=== PATIENT | male | born 1935 | race Caucasian/White ===

== ENCOUNTER 2016-08-20 12:46 | Inpatient (IN) | payer MEDICARE, BC ==
[~2016-08-20 12:46] MED LIST: AMICAR500 MG PO; FERROUS SU325 ( 65 ); IRON SUPPLEMEN325 MG PO; MULTIVITAMIN; MULTIVITAMIN W/1 T; MULTIVITAMINS1 EAC6 PO; SYNTHROID88 MC1 PO; TOPROL XL25 MG PO; TOPROL XL50 M1 PO; TOPROL XL50 MG PO
[2016-08-20] MEDS ORDERED: LEXAPRO10 M2 PO (13:19)
[2016-08-20 13:35] LABS: BASO % 0.4 % (0-2); EOS % 0.6 % (0-7); EOSINOPHIL ABSOLUTE COUNT 0.1 tho/cmm (0.0-0.7); HCT-HEMATOCRIT 31.1 % (36.0-53.5); HGB-HEMOGLOBIN 9.7 gm/dl (13.5-17.0); IMMATURE GRANULOCYTES ABSOLUTE 0.03 tho/cmm (0-0.03); IMMATURE GRANULOCYTES PERCENT 0.4 % (0-0.3); LYMPH % 8.7 % (20-45); LYMPH ABSOLUTE COUNT 0.7 tho/cmm (0.8-4.5); MCH (MEAN CORPUSCULAR HGB) 30.1 pg (28.0-32.0); MCHC MEAN CORPUSCULAR HGB CONC 31.2 % (32.0-36.0); MCV (MEAN CELL VOLUME) 96.6 fl (82.0-96.0); MEAN PLATELET VOLUME 10.7 cmc (9.4-12.4); MONO % 6.3 % (0-12); MONOCYTE ABSOLUTE COUNT 0.5 tho/cmm (0.0-1.2); NEUTROPHIL ABSOLUTE COUNT 6.9 tho/cmm (1.6-8.0); NEUTROPHIL-AUTOMATED 6.9 tho/cmm (1.6-8.0); NEUTROPHILS % 83.6 % (40-80); PLATELET COUNT 306 tho/cmm (150-450); RED BLOOD COUNT 3.22 mil/cmm (4.40-5.70); RED CELL DISTRIBUTION WIDTH 18.3 % (12.4-16.4); WHITE BLOOD COUNT 8.3 tho/cmm (4.0-10.0)
[2016-08-20 13:58] LABS: ALB/GLOB RATIO 1.1 (0.8-2.0); ALBUMIN 3.2 g/dl (3.5-5.0); ALKALINE PHOSPHATASE 66 U/L (33-138); ALT/SGPT 21 U/L (12-78); ANION GAP 12 mmol/L (0-20); AST/SGOT 21 U/L (10-40); BILIRUBIN,TOTAL 0.3 mg/dl (0.0-1.5); BLOOD UREA NITROGEN 36 mg/dl (6-24); CALCIUM 8.6 mg/dl (8.5-10.5); CARBON DIOXIDE-VENOUS 25 mmol/L (22-32); CHLORIDE 109 mmol/l (96-110); CREATININE 1.15 mg/dl (0.60-1.30); GLUCOSE 130 mg/dL (70-110); POTASSIUM 4.9 mmol/L (3.7-5.1); SODIUM 141 mmol/L (135-145); eGFR VALUE FOR BLACK 68 mL/Min
[2016-08-20 14:01] LABS: C-REACTIVE PROTEIN <0.3 mg/dl (0-0.9)
[2016-08-20 15:00] LABS: PROCALCITONIN <0.05 ng/ml (0.05-0.09)
[2016-08-20 16:22] LABS: URINE APPEARANCE CLEAR; URINE BILIRUBIN NEGATIVE (NEG); URINE BLOOD NEGATIVE (NEG); URINE COLOR YELLOW; URINE GLUCOSE (UA) NEGATIVE (NEG); URINE KETONE MODERATE (NEG); URINE LEUKOCYTE ESTERASE NEGATIVE (NEG); URINE NITRITE NEGATIVE (NEG); URINE PROTEIN NEGATIVE (NEG); URINE SPECIFIC GRAVITY 1.015 (1.003-1.030)
[2016-08-20 22:59] LABS: BASO % 0.5 % (0-2); EOS % 0.8 % (0-7); EOSINOPHIL ABSOLUTE COUNT 0.1 tho/cmm (0.0-0.7); IMMATURE GRANULOCYTES ABSOLUTE 0.01 tho/cmm (0-0.03); IMMATURE GRANULOCYTES PERCENT 0.2 % (0-0.3); LYMPH % 11.3 % (20-45); LYMPH ABSOLUTE COUNT 0.7 tho/cmm (0.8-4.5); MEAN PLATELET VOLUME 9.8 cmc (9.4-12.4); MONOCYTE ABSOLUTE COUNT 0.7 tho/cmm (0.0-1.2); NEUTROPHIL ABSOLUTE COUNT 4.6 tho/cmm (1.6-8.0); NEUTROPHIL-AUTOMATED 4.6 tho/cmm (1.6-8.0); NEUTROPHILS % 76.2 % (40-80); PLATELET COUNT 222 tho/cmm (150-450); RED BLOOD COUNT 2.37 mil/cmm (4.40-5.70); RED CELL DISTRIBUTION WIDTH 18.2 % (12.4-16.4); WHITE BLOOD COUNT 6.1 tho/cmm (4.0-10.0)
[2016-08-20 23:22] LABS: HGB-HEMOGLOBIN 7.2 gm/dl (13.5-17.0); MCH (MEAN CORPUSCULAR HGB) 30.3 pg (28.0-32.0); MCHC MEAN CORPUSCULAR HGB CONC 31.3 % (32.0-36.0)
[2016-08-21 05:10] LABS: BASO % 0.5 % (0-2); EOS % 1.2 % (0-7); EOSINOPHIL ABSOLUTE COUNT 0.1 tho/cmm (0.0-0.7); HCT-HEMATOCRIT 24.8 % (36.0-53.5); HGB-HEMOGLOBIN 7.7 gm/dl (13.5-17.0); IMMATURE GRANULOCYTES ABSOLUTE 0.01 tho/cmm (0-0.03); IMMATURE GRANULOCYTES PERCENT 0.2 % (0-0.3); LYMPH % 10.5 % (20-45); LYMPH ABSOLUTE COUNT 0.6 tho/cmm (0.8-4.5); MCH (MEAN CORPUSCULAR HGB) 30.2 pg (28.0-32.0); MCV (MEAN CELL VOLUME) 97.3 fl (82.0-96.0); MEAN PLATELET VOLUME 10.4 cmc (9.4-12.4); MONO % 10.4 % (0-12); MONOCYTE ABSOLUTE COUNT 0.6 tho/cmm (0.0-1.2); NEUTROPHIL ABSOLUTE COUNT 4.6 tho/cmm (1.6-8.0); NEUTROPHIL-AUTOMATED 4.6 tho/cmm (1.6-8.0); NEUTROPHILS % 77.2 % (40-80); PLATELET COUNT 247 tho/cmm (150-450); RED BLOOD COUNT 2.55 mil/cmm (4.40-5.70); RED CELL DISTRIBUTION WIDTH 18.3 % (12.4-16.4)
[2016-08-21 05:28] LABS: ALB/GLOB RATIO 1.2 (0.8-2.0); ALBUMIN 2.9 g/dl (3.5-5.0); ALKALINE PHOSPHATASE 52 U/L (33-138); ALT/SGPT 17 U/L (12-78); ANION GAP 11 mmol/L (0-20); AST/SGOT 15 U/L (10-40); BILIRUBIN,TOTAL 0.2 mg/dl (0.0-1.5); BLOOD UREA NITROGEN 26 mg/dl (6-24); CALCIUM 8.1 mg/dl (8.5-10.5); CARBON DIOXIDE-VENOUS 23 mmol/L (22-32); CHLORIDE 115 mmol/l (96-110); CREATININE 0.99 mg/dl (0.60-1.30); GLUCOSE 96 mg/dL (70-110); POTASSIUM 4.6 mmol/L (3.7-5.1); SODIUM 144 mmol/L (135-145); eGFR VALUE FOR BLACK 82 mL/Min
[2016-08-21 19:29] LABS: BASO % 0.3 % (0-2); EOS % 1.3 % (0-7); EOSINOPHIL ABSOLUTE COUNT 0.1 tho/cmm (0.0-0.7); HGB-HEMOGLOBIN 6.4 gm/dl (13.5-17.0); IMMATURE GRANULOCYTES ABSOLUTE 0.01 tho/cmm (0-0.03); IMMATURE GRANULOCYTES PERCENT 0.1 % (0-0.3); LYMPH % 9.4 % (20-45); LYMPH ABSOLUTE COUNT 0.6 tho/cmm (0.8-4.5); MCH (MEAN CORPUSCULAR HGB) 30.5 pg (28.0-32.0); MEAN PLATELET VOLUME 10.1 cmc (9.4-12.4); MONO % 8.3 % (0-12); MONOCYTE ABSOLUTE COUNT 0.6 tho/cmm (0.0-1.2); NEUTROPHIL ABSOLUTE COUNT 5.4 tho/cmm (1.6-8.0); NEUTROPHIL-AUTOMATED 5.4 tho/cmm (1.6-8.0); NEUTROPHILS % 80.6 % (40-80); PLATELET COUNT 229 tho/cmm (150-450); RED CELL DISTRIBUTION WIDTH 18.4 % (12.4-16.4); WHITE BLOOD COUNT 6.7 tho/cmm (4.0-10.0)
[2016-08-21 19:36] LABS: HCT-HEMATOCRIT 20.8 % (36.0-53.5); MCHC MEAN CORPUSCULAR HGB CONC 30.8 % (32.0-36.0)
[2016-08-22 02:38] LABS: HGB-HEMOGLOBIN 8.1 gm/dl (13.5-17.0)
[2016-08-22 04:54] LABS: BASO % 0.4 % (0-2); EOS % 0.8 % (0-7); EOSINOPHIL ABSOLUTE COUNT 0.1 tho/cmm (0.0-0.7); HGB-HEMOGLOBIN 7.4 gm/dl (13.5-17.0); IMMATURE GRANULOCYTES ABSOLUTE 0.02 tho/cmm (0-0.03); IMMATURE GRANULOCYTES PERCENT 0.2 % (0-0.3); LYMPH % 9.4 % (20-45); LYMPH ABSOLUTE COUNT 0.8 tho/cmm (0.8-4.5); MCH (MEAN CORPUSCULAR HGB) 30.6 pg (28.0-32.0); MCHC MEAN CORPUSCULAR HGB CONC 31.8 % (32.0-36.0); MCV (MEAN CELL VOLUME) 96.3 fl (82.0-96.0); MEAN PLATELET VOLUME 9.8 cmc (9.4-12.4); MONO % 6.1 % (0-12); MONOCYTE ABSOLUTE COUNT 0.5 tho/cmm (0.0-1.2); NEUTROPHIL ABSOLUTE COUNT 7.1 tho/cmm (1.6-8.0); NEUTROPHIL-AUTOMATED 7.1 tho/cmm (1.6-8.0); NEUTROPHILS % 83.1 % (40-80); PLATELET COUNT 222 tho/cmm (150-450); RED BLOOD COUNT 2.42 mil/cmm (4.40-5.70); RED CELL DISTRIBUTION WIDTH 18.4 % (12.4-16.4); WHITE BLOOD COUNT 8.5 tho/cmm (4.0-10.0)
[2016-08-22 04:57] LABS: HCT-HEMATOCRIT 23.3 % (36.0-53.5)
[2016-08-22 19:48] LABS: BASO % 0.2 % (0-2); EOS % 0.4 % (0-7); EOSINOPHIL ABSOLUTE COUNT 0.1 tho/cmm (0.0-0.7); IMMATURE GRANULOCYTES ABSOLUTE 0.05 tho/cmm (0-0.03); IMMATURE GRANULOCYTES PERCENT 0.4 % (0-0.3); LYMPH ABSOLUTE COUNT 0.7 tho/cmm (0.8-4.5); MCHC MEAN CORPUSCULAR HGB CONC 31.3 % (32.0-36.0); MCV (MEAN CELL VOLUME) 96.1 fl (82.0-96.0); MEAN PLATELET VOLUME 10.7 cmc (9.4-12.4); MONO % 5.2 % (0-12); MONOCYTE ABSOLUTE COUNT 0.7 tho/cmm (0.0-1.2); NEUTROPHIL ABSOLUTE COUNT 11.7 tho/cmm (1.6-8.0); NEUTROPHIL-AUTOMATED 11.7 tho/cmm (1.6-8.0); NEUTROPHILS % 88.8 % (40-80); PLATELET COUNT 201 tho/cmm (150-450); RED BLOOD COUNT 2.33 mil/cmm (4.40-5.70); RED CELL DISTRIBUTION WIDTH 19.2 % (12.4-16.4)
[2016-08-22 21:06] LABS: HCT-HEMATOCRIT 22.4 % (36.0-53.5); WHITE BLOOD COUNT 13.1 tho/cmm (4.0-10.0)
[2016-08-23 07:31] LABS: BASO % 0.3 % (0-2); EOSINOPHIL ABSOLUTE COUNT 0.1 tho/cmm (0.0-0.7); HCT-HEMATOCRIT 25.3 % (36.0-53.5); HGB-HEMOGLOBIN 8.1 gm/dl (13.5-17.0); IMMATURE GRANULOCYTES ABSOLUTE 0.02 tho/cmm (0-0.03); IMMATURE GRANULOCYTES PERCENT 0.3 % (0-0.3); LYMPH % 8.1 % (20-45); LYMPH ABSOLUTE COUNT 0.6 tho/cmm (0.8-4.5); MCH (MEAN CORPUSCULAR HGB) 30.8 pg (28.0-32.0); MCV (MEAN CELL VOLUME) 96.2 fl (82.0-96.0); MEAN PLATELET VOLUME 10.5 cmc (9.4-12.4); MONO % 6.8 % (0-12); MONOCYTE ABSOLUTE COUNT 0.5 tho/cmm (0.0-1.2); NEUTROPHILS % 83.5 % (40-80); PLATELET COUNT 213 tho/cmm (150-450); RED BLOOD COUNT 2.63 mil/cmm (4.40-5.70); RED CELL DISTRIBUTION WIDTH 19.5 % (12.4-16.4); WHITE BLOOD COUNT 7.2 tho/cmm (4.0-10.0)
[2016-08-23 19:41] LABS: BASO % 0.3 % (0-2); EOS % 1.3 % (0-7); EOSINOPHIL ABSOLUTE COUNT 0.1 tho/cmm (0.0-0.7); IMMATURE GRANULOCYTES ABSOLUTE 0.02 tho/cmm (0-0.03); IMMATURE GRANULOCYTES PERCENT 0.2 % (0-0.3); LYMPH % 10.4 % (20-45); LYMPH ABSOLUTE COUNT 0.9 tho/cmm (0.8-4.5); MCH (MEAN CORPUSCULAR HGB) 30.4 pg (28.0-32.0); MEAN PLATELET VOLUME 10.5 cmc (9.4-12.4); MONO % 5.4 % (0-12); MONOCYTE ABSOLUTE COUNT 0.5 tho/cmm (0.0-1.2); NEUTROPHIL ABSOLUTE COUNT 7.1 tho/cmm (1.6-8.0); NEUTROPHIL-AUTOMATED 7.1 tho/cmm (1.6-8.0); NEUTROPHILS % 82.4 % (40-80); PLATELET COUNT 261 tho/cmm (150-450); RED BLOOD COUNT 2.96 mil/cmm (4.40-5.70); RED CELL DISTRIBUTION WIDTH 20.2 % (12.4-16.4); WHITE BLOOD COUNT 8.6 tho/cmm (4.0-10.0)
[2016-08-24 05:50] LABS: BASO % 0.5 % (0-2); EOS % 2.3 % (0-7); EOSINOPHIL ABSOLUTE COUNT 0.1 tho/cmm (0.0-0.7); HCT-HEMATOCRIT 26.1 % (36.0-53.5); HGB-HEMOGLOBIN 8.2 gm/dl (13.5-17.0); IMMATURE GRANULOCYTES ABSOLUTE 0.01 tho/cmm (0-0.03); IMMATURE GRANULOCYTES PERCENT 0.2 % (0-0.3); LYMPH % 10.7 % (20-45); LYMPH ABSOLUTE COUNT 0.6 tho/cmm (0.8-4.5); MCH (MEAN CORPUSCULAR HGB) 30.8 pg (28.0-32.0); MCHC MEAN CORPUSCULAR HGB CONC 31.4 % (32.0-36.0); MCV (MEAN CELL VOLUME) 98.1 fl (82.0-96.0); MEAN PLATELET VOLUME 10.3 cmc (9.4-12.4); MONO % 7.8 % (0-12); MONOCYTE ABSOLUTE COUNT 0.4 tho/cmm (0.0-1.2); NEUTROPHIL ABSOLUTE COUNT 4.4 tho/cmm (1.6-8.0); NEUTROPHIL-AUTOMATED 4.4 tho/cmm (1.6-8.0); NEUTROPHILS % 78.5 % (40-80); PLATELET COUNT 205 tho/cmm (150-450); RED BLOOD COUNT 2.66 mil/cmm (4.40-5.70); RED CELL DISTRIBUTION WIDTH 20.3 % (12.4-16.4); WHITE BLOOD COUNT 5.6 tho/cmm (4.0-10.0)
[2016-08-24 06:15] LABS: ANION GAP 9 mmol/L (0-20); BLOOD UREA NITROGEN 7 mg/dl (6-24); CALCIUM 7.9 mg/dl (8.5-10.5); CARBON DIOXIDE-VENOUS 26 mmol/L (22-32); CHLORIDE 113 mmol/l (96-110); CREATININE 1.02 mg/dl (0.60-1.30); GLUCOSE 116 mg/dL (70-110); POTASSIUM 4.1 mmol/L (3.7-5.1); SODIUM 144 mmol/L (135-145); eGFR VALUE FOR BLACK 79 mL/Min
[2016-08-24] MEDS ORDERED: HUMATE P IV (12:06)
[2016-08-24] MEDS ORDERED: PROTONIX40 M2 PO (14:49)
[2016-12-17] MEDS ORDERED: AUGMENTIN (10:06)
[2016-12-17] MEDS ORDERED: CEPHALEXIN500 M1 PO (12:24)
== END 2016-08-24 16:20 | DRG 811 ==
LOC: EDMED 12:46 → EMR2 15:47 → 5WF 16:30
PROVIDERS: Emergency Medicine; Physician Assistant Medical; ADMIT Internal Medicine
PROC: 0DJ08ZZ Inspection of Upper Intestinal Tract, Via Natural or Artificial Opening Endoscopic (ICD-10-PCS; principal; 2016-08-22)
PROC: 0DJD8ZZ Inspection of Lower Intestinal Tract, Via Natural or Artificial Opening Endoscopic (ICD-10-PCS; 2016-08-22)
DX: D62 Acute posthemorrhagic anemia (principal); D66 Hereditary factor VIII deficiency; N17.9 Acute kidney failure, unspecified; K63.3 Ulcer of intestine; E87.2 Acidosis; C83.00 Small cell B-cell lymphoma, unspecified site; K92.2 Gastrointestinal hemorrhage, unspecified; D12.0 Benign neoplasm of cecum; F32.9 Major depressive disorder, single episode, unspecified; I10 Essential (primary) hypertension; K64.4 Residual hemorrhoidal skin tags; Z85.51 Personal history of malignant neoplasm of bladder; Z92.21 Personal history of antineoplastic chemotherapy; Z85.46 Personal history of malignant neoplasm of prostate
CPT/HCPCS: G8987-GO-CI; G8988-GO-CH; J1956; J7030; J7187; P9040

== ENCOUNTER 2016-10-09 12:11 | Inpatient (IN) | payer MEDICARE, BC ==
[~2016-10-09 12:11] MED LIST changes: +HUMATE P IV; +LEXAPRO10 M2 PO; +PROTONIX40 M2 PO
[2016-10-09] MEDS ORDERED: AMICAR PO (12:49)
[2016-10-09] MEDS ORDERED: VITAMIN D-32000 UNI4 PO (12:50)
[2016-10-09] MEDS ORDERED: TYLENOL EXTRA500 M1 PO (12:50)
[2016-10-09 17:26] LABS: ANION GAP 13 mmol/L (0-20); BLOOD UREA NITROGEN 28 mg/dl (6-24); CARBON DIOXIDE-VENOUS 27 mmol/L (22-32); CHLORIDE 111 mmol/l (96-110); CREATININE 0.99 mg/dl (0.60-1.30); GLUCOSE 102 mg/dL (70-110); POTASSIUM 4.6 mmol/L (3.7-5.1); SODIUM 146 mmol/L (135-145); eGFR VALUE FOR BLACK 81 mL/Min
[2016-10-10 05:04] LABS: BASO % 0.3 % (0-2); EOS % 1.3 % (0-7); EOSINOPHIL ABSOLUTE COUNT 0.1 tho/cmm (0.0-0.7); HGB-HEMOGLOBIN 6.6 gm/dl (13.5-17.0); IMMATURE GRANULOCYTES ABSOLUTE 0.01 tho/cmm (0-0.03); IMMATURE GRANULOCYTES PERCENT 0.1 % (0-0.3); LYMPH % 10.9 % (20-45); LYMPH ABSOLUTE COUNT 0.8 tho/cmm (0.8-4.5); MCH (MEAN CORPUSCULAR HGB) 30.4 pg (28.0-32.0); MCHC MEAN CORPUSCULAR HGB CONC 31.4 % (32.0-36.0); MCV (MEAN CELL VOLUME) 96.8 fl (82.0-96.0); MEAN PLATELET VOLUME 10.5 cmc (9.4-12.4); MONO % 10.3 % (0-12); MONOCYTE ABSOLUTE COUNT 0.8 tho/cmm (0.0-1.2); NEUTROPHIL ABSOLUTE COUNT 5.8 tho/cmm (1.6-8.0); NEUTROPHIL-AUTOMATED 5.8 tho/cmm (1.6-8.0); NEUTROPHILS % 77.1 % (40-80); PLATELET COUNT 177 tho/cmm (150-450); RED BLOOD COUNT 2.17 mil/cmm (4.40-5.70); RED CELL DISTRIBUTION WIDTH 18.9 % (12.4-16.4); WHITE BLOOD COUNT 7.5 tho/cmm (4.0-10.0)
[2016-10-10 17:10] LABS: HGB-HEMOGLOBIN 8.4 gm/dl (13.5-17.0)
[2016-10-11 06:00] LABS: BASO % 0.5 % (0-2); EOS % 3.6 % (0-7); EOSINOPHIL ABSOLUTE COUNT 0.2 tho/cmm (0.0-0.7); HCT-HEMATOCRIT 25.3 % (36.0-53.5); HGB-HEMOGLOBIN 8.2 gm/dl (13.5-17.0); IMMATURE GRANULOCYTES ABSOLUTE 0.01 tho/cmm (0-0.03); IMMATURE GRANULOCYTES PERCENT 0.2 % (0-0.3); LYMPH ABSOLUTE COUNT 0.7 tho/cmm (0.8-4.5); MCH (MEAN CORPUSCULAR HGB) 30.7 pg (28.0-32.0); MCHC MEAN CORPUSCULAR HGB CONC 32.4 % (32.0-36.0); MCV (MEAN CELL VOLUME) 94.8 fl (82.0-96.0); MEAN PLATELET VOLUME 10.5 cmc (9.4-12.4); MONO % 10.3 % (0-12); MONOCYTE ABSOLUTE COUNT 0.6 tho/cmm (0.0-1.2); NEUTROPHIL ABSOLUTE COUNT 4.1 tho/cmm (1.6-8.0); NEUTROPHIL-AUTOMATED 4.1 tho/cmm (1.6-8.0); NEUTROPHILS % 72.4 % (40-80); PLATELET COUNT 183 tho/cmm (150-450); RED BLOOD COUNT 2.67 mil/cmm (4.40-5.70); RED CELL DISTRIBUTION WIDTH 20.9 % (12.4-16.4); WHITE BLOOD COUNT 5.6 tho/cmm (4.0-10.0)
[2016-12-17] MEDS ORDERED: AUGMENTIN (10:06)
[2016-12-17] MEDS ORDERED: CEPHALEXIN500 M1 PO (12:24)
== END 2016-10-11 17:30 | DRG 378 ==
LOC: 5WF 12:11
PROVIDERS: Hospitalist; ADMIT Internal Medicine
PROC: 0DJ08ZZ Inspection of Upper Intestinal Tract, Via Natural or Artificial Opening Endoscopic (ICD-10-PCS; principal; 2016-10-10)
DX: K29.61 Other gastritis with bleeding (principal); D62 Acute posthemorrhagic anemia; D68.0 Von Willebrand disease; Z90.6 Acquired absence of other parts of urinary tract; T45.4X5A Adverse effect of iron and its compounds, initial encounter; Z85.72 Personal history of non-Hodgkin lymphomas; Z85.51 Personal history of malignant neoplasm of bladder; Z85.46 Personal history of malignant neoplasm of prostate; Z90.79 Acquired absence of other genital organ(s); Z85.528 Personal history of other malignant neoplasm of kidney; Z90.5 Acquired absence of kidney; E03.9 Hypothyroidism, unspecified; I10 Essential (primary) hypertension; Z88.3 Allergy status to other anti-infective agents; Z88.8 Allergy status to other drugs, medicaments and biological substances; F17.210 Nicotine dependence, cigarettes, uncomplicated
CPT/HCPCS: C1751; C9113; J7030; J7050; J7187; P9040

== ENCOUNTER 2016-10-17 10:47 | Inpatient (IN) | payer MEDICARE, BC ==
[~2016-10-17 10:47] MED LIST changes: +AMICAR PO; +TYLENOL EXTRA500 M1 PO; +VITAMIN D-32000 UNI4 PO
[2016-10-17] MEDS ORDERED: FEROSUL325 M1 PO (11:27)
[2016-10-17 11:33] LABS: BASO % 0.3 % (0-2); EOS % 0.2 % (0-7); IMMATURE GRANULOCYTES ABSOLUTE 0.02 tho/cmm (0-0.03); IMMATURE GRANULOCYTES PERCENT 0.3 % (0-0.3); LYMPH % 8.2 % (20-45); LYMPH ABSOLUTE COUNT 0.5 tho/cmm (0.8-4.5); MCV (MEAN CELL VOLUME) 93.3 fl (82.0-96.0); MEAN PLATELET VOLUME 10.9 cmc (9.4-12.4); MONO % 6.3 % (0-12); MONOCYTE ABSOLUTE COUNT 0.4 tho/cmm (0.0-1.2); NEUTROPHILS % 84.7 % (40-80); PLATELET COUNT 241 tho/cmm (150-450); WHITE BLOOD COUNT 5.9 tho/cmm (4.0-10.0)
[2016-10-17 11:37] LABS: MCH (MEAN CORPUSCULAR HGB) 28.5 pg (28.0-32.0); MCHC MEAN CORPUSCULAR HGB CONC 30.6 % (32.0-36.0)
[2016-10-17 11:39] LABS: HCT-HEMATOCRIT 19.6 % (36.0-53.5)
[2016-10-17] MEDS ORDERED: OMEPRAZOLE20 M3 PO (11:50)
[2016-10-17 11:55] LABS: ALB/GLOB RATIO 1.2 (0.8-2.0); ALBUMIN 2.8 g/dl (3.5-5.0); ALKALINE PHOSPHATASE 50 U/L (33-138); ALT/SGPT 16 U/L (12-78); ANION GAP 13 mmol/L (0-20); AST/SGOT 15 U/L (10-40); BILIRUBIN,TOTAL 0.2 mg/dl (0.0-1.5); BLOOD UREA NITROGEN 41 mg/dl (6-24); CALCIUM 8.3 mg/dl (8.5-10.5); CARBON DIOXIDE-VENOUS 24 mmol/L (22-32); CHLORIDE 113 mmol/l (96-110); GLUCOSE 149 mg/dL (70-110); POTASSIUM 4.6 mmol/L (3.7-5.1); SODIUM 145 mmol/L (135-145); eGFR VALUE FOR BLACK 80 mL/Min
[2016-10-17] MEDS ORDERED: RITUXAN100 MG/10 IV (12:10)
[2016-10-17] MEDS ORDERED: PAIN RELIEVER650 MG PO (12:12)
[2016-10-17] MEDS ORDERED: DIPHENHYDR50 MG/1 M2 IV (12:12)
[2016-10-17 14:08] LABS: PROTHROMBIN TIME 12.1 SECONDS (9.0-13.6)
[2016-10-18 00:19] LABS: HGB-HEMOGLOBIN 8.3 gm/dl (13.5-17.0)
[2016-10-18 07:19] LABS: ANION GAP 13 mmol/L (0-20); BLOOD UREA NITROGEN 21 mg/dl (6-24); CARBON DIOXIDE-VENOUS 21 mmol/L (22-32); CHLORIDE 120 mmol/l (96-110); CREATININE 0.92 mg/dl (0.60-1.30); GLUCOSE 88 mg/dL (70-110); POTASSIUM 4.1 mmol/L (3.7-5.1); SODIUM 150 mmol/L (135-145); eGFR VALUE FOR BLACK 89 mL/Min
[2016-10-18 07:29] LABS: BASO % 0.5 % (0-2); EOS % 1.8 % (0-7); EOSINOPHIL ABSOLUTE COUNT 0.1 tho/cmm (0.0-0.7); HGB-HEMOGLOBIN 7.5 gm/dl (13.5-17.0); IMMATURE GRANULOCYTES ABSOLUTE 0.01 tho/cmm (0-0.03); IMMATURE GRANULOCYTES PERCENT 0.3 % (0-0.3); LYMPH % 17.1 % (20-45); LYMPH ABSOLUTE COUNT 0.7 tho/cmm (0.8-4.5); MCH (MEAN CORPUSCULAR HGB) 28.1 pg (28.0-32.0); MEAN PLATELET VOLUME 10.5 cmc (9.4-12.4); MONO % 8.5 % (0-12); MONOCYTE ABSOLUTE COUNT 0.3 tho/cmm (0.0-1.2); NEUTROPHIL ABSOLUTE COUNT 2.8 tho/cmm (1.6-8.0); NEUTROPHIL-AUTOMATED 2.8 tho/cmm (1.6-8.0); NEUTROPHILS % 71.8 % (40-80); PLATELET COUNT 205 tho/cmm (150-450); RED BLOOD COUNT 2.67 mil/cmm (4.40-5.70); RED CELL DISTRIBUTION WIDTH 19.8 % (12.4-16.4); WHITE BLOOD COUNT 3.9 tho/cmm (4.0-10.0)
[2016-10-18 07:31] LABS: HCT-HEMATOCRIT 23.5 % (36.0-53.5); MCHC MEAN CORPUSCULAR HGB CONC 31.9 % (32.0-36.0)
--- NOTE | 2016-10-18 19:48 | NUR ---
VIRTUAL CARE NOTE: REVIEWED PLAN OF CARE. PT/ DENIES ANY CONCERNS. NURSE IN ROOM. DENIES NEEDS. WILL CONTINUE WITH CHART REVIEW.
[2016-10-19 06:14] LABS: HGB-HEMOGLOBIN 6.4 gm/dl (13.5-17.0); MCH (MEAN CORPUSCULAR HGB) 28.1 pg (28.0-32.0); MCV (MEAN CELL VOLUME) 88.6 fl (82.0-96.0); MEAN PLATELET VOLUME 10.5 cmc (9.4-12.4); NEUTROPHIL-AUTOMATED 7.8 tho/cmm (1.6-8.0); PLATELET COUNT 165 tho/cmm (150-450); RED BLOOD COUNT 2.28 mil/cmm (4.40-5.70); RED CELL DISTRIBUTION WIDTH 18.8 % (12.4-16.4)
[2016-10-19 06:18] LABS: HCT-HEMATOCRIT 20.2 % (36.0-53.5); MCHC MEAN CORPUSCULAR HGB CONC 31.7 % (32.0-36.0)
[2016-10-19 07:41] LABS: BAND % 16 % (0-20); BAND ABSOLUTE COUNT 1.4 tho/cmm (0-2.0)
[2016-10-19 12:44] LABS: URINE BILIRUBIN NEGATIVE (NEG); URINE BLOOD NEGATIVE (NEG); URINE GLUCOSE (UA) NEGATIVE (NEG); URINE KETONE NEGATIVE (NEG); URINE LEUKOCYTE ESTERASE POSITIVE (NEG); URINE NITRITE NEGATIVE (NEG); URINE PROTEIN NEGATIVE (NEG)
[2016-10-19 12:45] LABS: URINE APPEARANCE CLEAR; URINE COLOR YELLOW
[2016-10-19 12:55] LABS: URINE EPITHELIAL CELLS 0 /[HPF] (0-10); URINE RBC 0 /[HPF] (0-5)
[2016-10-19 13:58] LABS: BASO % 0.2 % (0-2); EOS % 0.5 % (0-7); EOSINOPHIL ABSOLUTE COUNT 0.1 tho/cmm (0.0-0.7); HGB-HEMOGLOBIN 6.8 gm/dl (13.5-17.0); LYMPH % 4.4 % (20-45); LYMPH ABSOLUTE COUNT 0.4 tho/cmm (0.8-4.5); MCH (MEAN CORPUSCULAR HGB) 27.8 pg (28.0-32.0); MCHC MEAN CORPUSCULAR HGB CONC 31.5 % (32.0-36.0); MCV (MEAN CELL VOLUME) 88.2 fl (82.0-96.0); MEAN PLATELET VOLUME 10.5 cmc (9.4-12.4); MONO % 5.9 % (0-12); MONOCYTE ABSOLUTE COUNT 0.6 tho/cmm (0.0-1.2); NEUTROPHIL ABSOLUTE COUNT 8.5 tho/cmm (1.6-8.0); NEUTROPHIL-AUTOMATED 8.5 tho/cmm (1.6-8.0); NEUTROPHILS % 88.6 % (40-80); PLATELET COUNT 187 tho/cmm (150-450); RED BLOOD COUNT 2.45 mil/cmm (4.40-5.70); RED CELL DISTRIBUTION WIDTH 18.7 % (12.4-16.4); WHITE BLOOD COUNT 9.6 tho/cmm (4.0-10.0)
[2016-10-19 14:05] LABS: HCT-HEMATOCRIT 21.6 % (36.0-53.5)
[2016-10-19 14:35] LABS: INR 1.2 INR (0.9-1.1); PROTHROMBIN TIME 13.6 SECONDS (9.0-13.6)
--- NOTE | 2016-10-19 15:02 | NUR ---
VIRTUAL CARE NOTE: PT RESTING ON CHAIR STATES NOT FEELING TOO GOOD TODAY BUT DOING OK. PLAN OF CARE REVIEWED, HBG LOW THIS AM, PT RECEIVING 2 UNTIS OF BLOOD TODAY, WILL PLAN FOR BONE MARROW BX TOMORROW AM. PT DENIES ANY NEEDS OR QUESTIONS AT THIS TIME.
--- NOTE | 2016-10-19 20:55 | NUR ---
VIRTUAL CARE NOTE: PT. IS IN BED WITH S.O. AT HIS SIDE. DENIES PAIN AND STATES HE FEELS BETTER THAN ONE DAY PRIOR. DENIES FURTHER NEEDS OR QUESTIONS WITH HIS CARE AT THIS TIME. INSTRUCTED TO CALL FOR FUTURE NEEDS. STATES VERBAL AGREEMENT.
[2016-10-19 21:22] LABS: URINE APPEARANCE HAZY; URINE BILIRUBIN NEGATIVE (NEG); URINE BLOOD NEGATIVE (NEG); URINE COLOR PALE YELLOW; URINE GLUCOSE (UA) NEGATIVE (NEG); URINE KETONE NEGATIVE (NEG); URINE LEUKOCYTE ESTERASE NEGATIVE (NEG); URINE NITRITE NEGATIVE (NEG); URINE PROTEIN NEGATIVE (NEG)
[2016-10-20 03:13] LABS: BASO % 0.3 % (0-2); EOS % 1.8 % (0-7); EOSINOPHIL ABSOLUTE COUNT 0.1 tho/cmm (0.0-0.7); HGB-HEMOGLOBIN 6.7 gm/dl (13.5-17.0); IMMATURE GRANULOCYTES ABSOLUTE 0.01 tho/cmm (0-0.03); IMMATURE GRANULOCYTES PERCENT 0.2 % (0-0.3); LYMPH % 6.1 % (20-45); LYMPH ABSOLUTE COUNT 0.4 tho/cmm (0.8-4.5); MCH (MEAN CORPUSCULAR HGB) 28.5 pg (28.0-32.0); MCV (MEAN CELL VOLUME) 88.1 fl (82.0-96.0); MEAN PLATELET VOLUME 10.7 cmc (9.4-12.4); MONO % 6.1 % (0-12); MONOCYTE ABSOLUTE COUNT 0.4 tho/cmm (0.0-1.2); NEUTROPHIL ABSOLUTE COUNT 5.3 tho/cmm (1.6-8.0); NEUTROPHIL-AUTOMATED 5.3 tho/cmm (1.6-8.0); NEUTROPHILS % 85.5 % (40-80); PLATELET COUNT 139 tho/cmm (150-450); RED BLOOD COUNT 2.35 mil/cmm (4.40-5.70); RED CELL DISTRIBUTION WIDTH 16.6 % (12.4-16.4); WHITE BLOOD COUNT 6.2 tho/cmm (4.0-10.0)
[2016-10-20 03:14] LABS: HCT-HEMATOCRIT 20.7 % (36.0-53.5); MCHC MEAN CORPUSCULAR HGB CONC 32.4 % (32.0-36.0)
[2016-10-20 20:50] LABS: HGB-HEMOGLOBIN 10.1 gm/dl (13.5-17.0)
[2016-10-21 03:27] LABS: BASO % 0.2 % (0-2); EOS % 1.9 % (0-7); EOSINOPHIL ABSOLUTE COUNT 0.1 tho/cmm (0.0-0.7); HGB-HEMOGLOBIN 9.7 gm/dl (13.5-17.0); IMMATURE GRANULOCYTES ABSOLUTE 0.01 tho/cmm (0-0.03); IMMATURE GRANULOCYTES PERCENT 0.2 % (0-0.3); LYMPH % 5.9 % (20-45); LYMPH ABSOLUTE COUNT 0.4 tho/cmm (0.8-4.5); MCH (MEAN CORPUSCULAR HGB) 28.4 pg (28.0-32.0); MCHC MEAN CORPUSCULAR HGB CONC 32.4 % (32.0-36.0); MCV (MEAN CELL VOLUME) 87.7 fl (82.0-96.0); MEAN PLATELET VOLUME 10.5 cmc (9.4-12.4); MONOCYTE ABSOLUTE COUNT 0.5 tho/cmm (0.0-1.2); NEUTROPHIL ABSOLUTE COUNT 4.9 tho/cmm (1.6-8.0); NEUTROPHIL-AUTOMATED 4.9 tho/cmm (1.6-8.0); NEUTROPHILS % 82.8 % (40-80); PLATELET COUNT 174 tho/cmm (150-450); RED BLOOD COUNT 3.41 mil/cmm (4.40-5.70); RED CELL DISTRIBUTION WIDTH 15.9 % (12.4-16.4); WHITE BLOOD COUNT 5.9 tho/cmm (4.0-10.0)
[2016-10-21 03:29] LABS: HCT-HEMATOCRIT 29.9 % (36.0-53.5)
[2016-10-21 03:39] LABS: ANION GAP 13 mmol/L (0-20); BLOOD UREA NITROGEN 5 mg/dl (6-24); CALCIUM 7.9 mg/dl (8.5-10.5); CARBON DIOXIDE-VENOUS 22 mmol/L (22-32); CHLORIDE 111 mmol/l (96-110); CREATININE 0.82 mg/dl (0.60-1.30); GLUCOSE 80 mg/dL (70-110); POTASSIUM 3.6 mmol/L (3.7-5.1); SODIUM 142 mmol/L (135-145); eGFR VALUE FOR BLACK >90 mL/Min
--- NOTE | 2016-10-21 13:58 | NUR ---
VIRTUAL CARE NOTE: CHECKED IN WITH PATIENT. FAMILY AT BEDSIDE. WENT OVER SOME OF THE NEW MEDICATION (LEVAQUIN) AND TESTING INFORMATION REGARDING THE WHEEZY EPISODES HE HAD OVERNIGHT. SITTING UP IN CHAIR W/ LEGS ELEVATED. FAMILY ASKING APPROPRIATE QUESTIONS. LET PT KNOW THAT WE WILL NOTIFY HIM OF ANY INFORMATION OR FINDINGS FROM THE RESPIRATORY PANEL COLLECTED THIS AM, WELL THE CXR FROM LAST NIGHT (RESULTS STILL PENDING IN COMPUTER). WILL CONTINUE TO MONITOR. HAD NO FURTHER QUESTIONS, IN VERY GOOD SPIRITS. ELECTRONIC CHART REVIEWED.
--- NOTE | 2016-10-21 21:04 | NUR ---
MELE ROUNDING-PATIENT SITTING UP IN CHAIR VISITING WITH FAMILY AT BEDSIDE. DENIES PAIN AND IS FEELING MUCH BETTER THAN LAST NIGHT I ASKED ABOUT HIS WHEEZINESS AND PUFFINESS I HAD CALLED THE DOCTOR LAST NIGHT GETTING THE CHEST XRAY. HE SAID HE THOUGHT THE XRAY WAS FINE AND I TOLD HIM IT SHOULD POSSIBLE PNA AND HE AGREED HE REMEMBERED THAT WAS WHY THEY STARTED HIM ON ABX. I REVIEWED IMPORTANCE OF AMBULATION AND CDB. HE AGREED. NO OTHER QUESTIONS OR CONCERNS. CHART WAS REVIEWED.
[2016-10-22 06:23] LABS: BASO % 0.2 % (0-2); EOS % 1.7 % (0-7); EOSINOPHIL ABSOLUTE COUNT 0.1 tho/cmm (0.0-0.7); HCT-HEMATOCRIT 31.9 % (36.0-53.5); HGB-HEMOGLOBIN 10.3 gm/dl (13.5-17.0); IMMATURE GRANULOCYTES ABSOLUTE 0.02 tho/cmm (0-0.03); IMMATURE GRANULOCYTES PERCENT 0.4 % (0-0.3); LYMPH % 7.9 % (20-45); LYMPH ABSOLUTE COUNT 0.4 tho/cmm (0.8-4.5); MCH (MEAN CORPUSCULAR HGB) 28.1 pg (28.0-32.0); MCHC MEAN CORPUSCULAR HGB CONC 32.3 % (32.0-36.0); MCV (MEAN CELL VOLUME) 87.2 fl (82.0-96.0); MEAN PLATELET VOLUME 10.9 cmc (9.4-12.4); MONO % 10.9 % (0-12); MONOCYTE ABSOLUTE COUNT 0.6 tho/cmm (0.0-1.2); NEUTROPHIL ABSOLUTE COUNT 4.3 tho/cmm (1.6-8.0); NEUTROPHIL-AUTOMATED 4.3 tho/cmm (1.6-8.0); NEUTROPHILS % 78.9 % (40-80); PLATELET COUNT 204 tho/cmm (150-450); RED BLOOD COUNT 3.66 mil/cmm (4.40-5.70); RED CELL DISTRIBUTION WIDTH 15.9 % (12.4-16.4); WHITE BLOOD COUNT 5.4 tho/cmm (4.0-10.0)
[2016-10-22 06:30] LABS: ANION GAP 12 mmol/L (0-20); BLOOD UREA NITROGEN 8 mg/dl (6-24); CALCIUM 8.2 mg/dl (8.5-10.5); CARBON DIOXIDE-VENOUS 25 mmol/L (22-32); CHLORIDE 109 mmol/l (96-110); CREATININE 0.91 mg/dl (0.60-1.30); GLUCOSE 85 mg/dL (70-110); POTASSIUM 3.6 mmol/L (3.7-5.1); SODIUM 142 mmol/L (135-145); eGFR VALUE FOR BLACK >90 mL/Min
--- NOTE | 2016-10-22 19:52 | NUR ---
VN/LEADER ROUNDING-VISITED WITH PATIENT AND SPOUSE HE SAT IN THE CHAIR. DOING WELL AND DENIES PAIN. HE IS STILL ON THE PROTONIX DRIP BUT HAS SWITCHED FROM IV ABX TO PO LEVAQUIN STARTING AT 10 TOMORROW. EDUCATED HIM ON SIDE EFFECTS AND WHAT NOT TO HAVE TO EAT WITHIN 2 HOURS OF MEDICATION. PRINTOUT ON MEDICATION TO BEDSIDE NURSE TO GIVE TO PATIENT. PATIENT STATES RARELY USES CALL LIGHT AND WHEN HE DOES IT IS ANSWERED QUICKLY-NURSES/STAFF ARE GREAT. NO OTHER CONCERNS/QUESTIONS AT THIS TIME. CHART REVIEWED.
[2016-10-23 04:54] LABS: HCT-HEMATOCRIT 32.3 % (36.0-53.5); HGB-HEMOGLOBIN 10.3 gm/dl (13.5-17.0); MCV (MEAN CELL VOLUME) 86.8 fl (82.0-96.0); RED CELL DISTRIBUTION WIDTH 15.9 % (12.4-16.4)
--- NOTE | 2016-10-23 19:35 | NUR ---
VIRTUAL CARE NOTE: PT. IN HIS CHAIR WITH S.O. AT THIS SIDE. DENIES PAIN STATES HE FEELS FINE. STATES HAS WALKED X2 AND PLANS TO WALK AGAIN WITH HIS S.O. DENIES FURTHER QUESTIONS AT THIS TIME. INSTRUCTED TO CALL FOR FUTURE NEEDS.
[2016-10-24 04:44] LABS: BASO % 0.6 % (0-2); EOS % 3.3 % (0-7); EOSINOPHIL ABSOLUTE COUNT 0.2 tho/cmm (0.0-0.7); HCT-HEMATOCRIT 33.4 % (36.0-53.5); HGB-HEMOGLOBIN 10.6 gm/dl (13.5-17.0); IMMATURE GRANULOCYTES ABSOLUTE 0.01 tho/cmm (0-0.03); IMMATURE GRANULOCYTES PERCENT 0.2 % (0-0.3); LYMPH % 11.8 % (20-45); LYMPH ABSOLUTE COUNT 0.6 tho/cmm (0.8-4.5); MCHC MEAN CORPUSCULAR HGB CONC 31.7 % (32.0-36.0); MCV (MEAN CELL VOLUME) 88.1 fl (82.0-96.0); MEAN PLATELET VOLUME 10.9 cmc (9.4-12.4); MONO % 9.4 % (0-12); MONOCYTE ABSOLUTE COUNT 0.5 tho/cmm (0.0-1.2); NEUTROPHIL ABSOLUTE COUNT 3.8 tho/cmm (1.6-8.0); NEUTROPHIL-AUTOMATED 3.8 tho/cmm (1.6-8.0); NEUTROPHILS % 74.7 % (40-80); PLATELET COUNT 189 tho/cmm (150-450); RED BLOOD COUNT 3.79 mil/cmm (4.40-5.70); RED CELL DISTRIBUTION WIDTH 15.9 % (12.4-16.4); WHITE BLOOD COUNT 5.1 tho/cmm (4.0-10.0)
--- NOTE | 2016-10-24 10:48 | NUR ---
VIRTUAL CARE NOTE: PT RESTING ON CHAIR, STATES DOING GREAT. DISCHARGE PLAN DISCUSSED WITH PT, PLAN DC HOME LATER TODAY AFTER HEME/ONC DOCTOR ROUNDS. PT DENIES ANY NEEDS AT THIS TIME.
[2016-10-24] MEDS ORDERED: STOP HOME MEDICATION (15:23)
--- NOTE | 2016-10-24 15:42 | NUR ---
VIRUTAL CARE NOTE: PT DRESSED READY FOR DISACHARGE TEACHING INFORMATION GIVEN TO PT. PICC LINE WILL STAY IN FOR CHEMO INFUSON AT 'S OFFICE. INFORMAITON GIVEN TO PT, PT DENIES QUESTIONS. PT WILL NEED DRESSING CHANGE PRIOR TO DISCHARGE. INFORMED FLOOR NURSE DISCHARGE TEACHING DONE.
[2016-12-17] MEDS ORDERED: AUGMENTIN (10:06)
[2016-12-17] MEDS ORDERED: CEPHALEXIN500 M1 PO (12:24)
== END 2016-10-24 16:43 | DRG 378 ==
LOC: EDMED 10:47 → EMR2 13:58 → 5WD 17:13
PROVIDERS: Emergency Medicine; Family Medicine; Internal Medicine Hematology & Oncology; Nurse Practitioner; Physician Assistant Medical; Specialist; ADMIT Internal Medicine
PROC: 0D5H8ZZ Destruction of Cecum, Via Natural or Artificial Opening Endoscopic (ICD-10-PCS; principal; 2016-10-18)
PROC: 0DJ08ZZ Inspection of Upper Intestinal Tract, Via Natural or Artificial Opening Endoscopic (ICD-10-PCS; 2016-10-18)
DX: K92.1 Melena (principal); D62 Acute posthemorrhagic anemia; C83.00 Small cell B-cell lymphoma, unspecified site; D68.0 Von Willebrand disease; D12.0 Benign neoplasm of cecum; I10 Essential (primary) hypertension; E03.9 Hypothyroidism, unspecified; K44.9 Diaphragmatic hernia without obstruction or gangrene; K57.90 Diverticulosis of intestine, part unspecified, without perforation or abscess without bleeding; K64.8 Other hemorrhoids; Z85.51 Personal history of malignant neoplasm of bladder; Z86.010 Personal history of colon polyps; Z85.528 Personal history of other malignant neoplasm of kidney; Z85.46 Personal history of malignant neoplasm of prostate
CPT/HCPCS: A9560; C1830; C9113; G0364; J1956; J2250; J2405; J3010; J7030; J7050; J7187; P9040; Q9967

== ENCOUNTER 2016-11-10 19:21 | Inpatient (IN) | payer MEDICARE, BC ==
[~2016-11-10 19:21] MED LIST changes: +DIPHENHYDR50 MG/1 M2 IV; +FEROSUL325 M1 PO; +OMEPRAZOLE20 M3 PO; +PAIN RELIEVER650 MG PO; +RITUXAN100 MG/10 IV; +STOP HOME MEDICATION
[2016-11-10 20:00] LABS: BASO % 0.4 % (0-2); EOS % 1.3 % (0-7); EOSINOPHIL ABSOLUTE COUNT 0.1 tho/cmm (0.0-0.7); HCT-HEMATOCRIT 27.7 % (36.0-53.5); HGB-HEMOGLOBIN 8.5 gm/dl (13.5-17.0); IMMATURE GRANULOCYTES ABSOLUTE 0.06 tho/cmm (0-0.03); IMMATURE GRANULOCYTES PERCENT 1.1 % (0-0.3); LYMPH % 9.9 % (20-45); LYMPH ABSOLUTE COUNT 0.5 tho/cmm (0.8-4.5); MCHC MEAN CORPUSCULAR HGB CONC 30.7 % (32.0-36.0); MCV (MEAN CELL VOLUME) 91.1 fl (82.0-96.0); MEAN PLATELET VOLUME 11.4 cmc (9.4-12.4); MONO % 11.3 % (0-12); MONOCYTE ABSOLUTE COUNT 0.6 tho/cmm (0.0-1.2); PLATELET COUNT 223 tho/cmm (150-450); RED BLOOD COUNT 3.04 mil/cmm (4.40-5.70); RED CELL DISTRIBUTION WIDTH 20.8 % (12.4-16.4); WHITE BLOOD COUNT 5.2 tho/cmm (4.0-10.0)
[2016-11-10 20:18] LABS: ALB/GLOB RATIO 1.1 (0.8-2.0); ALBUMIN 2.7 g/dl (3.5-5.0); ALKALINE PHOSPHATASE 60 U/L (33-138); ALT/SGPT 16 U/L (12-78); ANION GAP 13 mmol/L (0-20); AST/SGOT 9 U/L (10-40); BILIRUBIN,TOTAL 0.2 mg/dl (0.0-1.5); BLOOD UREA NITROGEN 35 mg/dl (6-24); CALCIUM 7.7 mg/dl (8.5-10.5); CARBON DIOXIDE-VENOUS 25 mmol/L (22-32); CHLORIDE 113 mmol/l (96-110); CREATININE 1.14 mg/dl (0.60-1.30); GLUCOSE 131 mg/dL (70-110); POTASSIUM 4.7 mmol/L (3.7-5.1); SODIUM 146 mmol/L (135-145); eGFR VALUE FOR BLACK 69 mL/Min
[2016-11-10 23:57] LABS: HCT-HEMATOCRIT 30.1 % (36.0-53.5); HGB-HEMOGLOBIN 9.2 gm/dl (13.5-17.0); MCV (MEAN CELL VOLUME) 89.6 fl (82.0-96.0); RED CELL DISTRIBUTION WIDTH 20.2 % (12.4-16.4)
[2016-11-11 00:07] LABS: PROTHROMBIN TIME 11.4 SECONDS (9.0-13.6)
[2016-11-11 00:22] LABS: C-REACTIVE PROTEIN <0.3 mg/dl (0-0.9)
[2016-11-11 00:23] LABS: TSH-THYROID STIMULATING HORM. 0.86 uIU/ml (0.40-3.80)
[2016-11-11 03:10] LABS: URINE BILIRUBIN NEGATIVE (NEG); URINE BLOOD MODERATE (NEG); URINE GLUCOSE (UA) NEGATIVE (NEG); URINE KETONE NEGATIVE (NEG); URINE LEUKOCYTE ESTERASE NEGATIVE (NEG); URINE NITRITE NEGATIVE (NEG); URINE PROTEIN NEGATIVE (NEG); URINE SPECIFIC GRAVITY 1.015 (1.003-1.030)
[2016-11-11 03:21] LABS: URINE APPEARANCE CLEAR; URINE COLOR PALE YELLOW
[2016-11-11 03:26] LABS: URINE WBC 0-1 /[HPF] (0-5)
[2016-11-11 05:30] LABS: HCT-HEMATOCRIT 29.3 % (36.0-53.5); HGB-HEMOGLOBIN 9.2 gm/dl (13.5-17.0); MCV (MEAN CELL VOLUME) 89.1 fl (82.0-96.0); RED CELL DISTRIBUTION WIDTH 20.5 % (12.4-16.4)
[2016-11-11 05:44] LABS: ALB/GLOB RATIO 1.1 (0.8-2.0); ALBUMIN 2.7 g/dl (3.5-5.0); ALKALINE PHOSPHATASE 57 U/L (33-138); ALT/SGPT 16 U/L (12-78); ANION GAP 12 mmol/L (0-20); AST/SGOT 13 U/L (10-40); BLOOD UREA NITROGEN 29 mg/dl (6-24); CALCIUM 7.7 mg/dl (8.5-10.5); CARBON DIOXIDE-VENOUS 24 mmol/L (22-32); CHLORIDE 113 mmol/l (96-110); CREATININE 0.86 mg/dl (0.60-1.30); GLUCOSE 90 mg/dL (70-110); POTASSIUM 4.7 mmol/L (3.7-5.1); SODIUM 144 mmol/L (135-145); eGFR VALUE FOR BLACK >90 mL/Min
[2016-11-11 05:54] LABS: BILIRUBIN,TOTAL 0.4 mg/dl (0.0-1.5)
[2016-11-11 11:08] LABS: HGB-HEMOGLOBIN 9.4 gm/dl (13.5-17.0); RED CELL DISTRIBUTION WIDTH 20.8 % (12.4-16.4)
[2016-11-11 17:28] LABS: HCT-HEMATOCRIT 28.8 % (36.0-53.5); HGB-HEMOGLOBIN 8.9 gm/dl (13.5-17.0); MCV (MEAN CELL VOLUME) 90.3 fl (82.0-96.0)
[2016-11-11 23:30] LABS: HCT-HEMATOCRIT 28.9 % (36.0-53.5); HGB-HEMOGLOBIN 8.9 gm/dl (13.5-17.0); RED CELL DISTRIBUTION WIDTH 21.1 % (12.4-16.4)
[2016-11-12 05:52] LABS: HCT-HEMATOCRIT 27.9 % (36.0-53.5); HGB-HEMOGLOBIN 8.6 gm/dl (13.5-17.0); MCV (MEAN CELL VOLUME) 90.3 fl (82.0-96.0); RED CELL DISTRIBUTION WIDTH 21.1 % (12.4-16.4)
[2016-11-12 10:49] LABS: HCT-HEMATOCRIT 30.6 % (36.0-53.5); HGB-HEMOGLOBIN 9.5 gm/dl (13.5-17.0); MCV (MEAN CELL VOLUME) 91.3 fl (82.0-96.0); RED CELL DISTRIBUTION WIDTH 21.2 % (12.4-16.4)
[2016-11-12 17:22] LABS: HCT-HEMATOCRIT 31.9 % (36.0-53.5); HGB-HEMOGLOBIN 10.1 gm/dl (13.5-17.0); MCV (MEAN CELL VOLUME) 90.1 fl (82.0-96.0); RED CELL DISTRIBUTION WIDTH 20.5 % (12.4-16.4)
[2016-11-12 23:16] LABS: HCT-HEMATOCRIT 30.1 % (36.0-53.5); HGB-HEMOGLOBIN 9.4 gm/dl (13.5-17.0); MCV (MEAN CELL VOLUME) 89.9 fl (82.0-96.0)
[2016-11-13 05:36] LABS: HCT-HEMATOCRIT 31.9 % (36.0-53.5); MCV (MEAN CELL VOLUME) 89.4 fl (82.0-96.0); RED CELL DISTRIBUTION WIDTH 21.1 % (12.4-16.4)
[2016-11-13 05:43] LABS: PROTHROMBIN TIME 11.4 SECONDS (9.0-13.6)
[2016-11-13 11:24] LABS: HCT-HEMATOCRIT 33.4 % (36.0-53.5); HGB-HEMOGLOBIN 10.6 gm/dl (13.5-17.0); MCV (MEAN CELL VOLUME) 89.8 fl (82.0-96.0); RED CELL DISTRIBUTION WIDTH 21.2 % (12.4-16.4)
[2016-11-13 17:18] LABS: HCT-HEMATOCRIT 34.7 % (36.0-53.5); MCV (MEAN CELL VOLUME) 89.4 fl (82.0-96.0); RED CELL DISTRIBUTION WIDTH 21.4 % (12.4-16.4)
[2016-11-13 23:33] LABS: HCT-HEMATOCRIT 30.3 % (36.0-53.5); HGB-HEMOGLOBIN 9.6 gm/dl (13.5-17.0); MCV (MEAN CELL VOLUME) 89.1 fl (82.0-96.0); RED CELL DISTRIBUTION WIDTH 21.1 % (12.4-16.4)
[2016-11-14 05:51] LABS: HCT-HEMATOCRIT 31.2 % (36.0-53.5); MCV (MEAN CELL VOLUME) 89.1 fl (82.0-96.0)
[2016-11-14 11:53] LABS: HCT-HEMATOCRIT 33.5 % (36.0-53.5); HGB-HEMOGLOBIN 10.9 gm/dl (13.5-17.0); MCV (MEAN CELL VOLUME) 89.3 fl (82.0-96.0)
[2016-11-14] MEDS ORDERED: HUMATE P IV (15:21)
[2016-11-14] MEDS ORDERED: PROTONIX40 M2 PO (15:22)
[2016-12-17] MEDS ORDERED: AUGMENTIN (10:06)
[2016-12-17] MEDS ORDERED: CEPHALEXIN500 M1 PO (12:24)
== END 2016-11-14 17:30 | DRG 378 ==
LOC: EDMED 19:21 → EMR2 21:42 → PCUB 22:50
PROVIDERS: Emergency Medicine; Internal Medicine Hematology & Oncology; ADMIT Hospitalist
PROC: 30233N1 Transfusion of Nonautologous Red Blood Cells into Peripheral Vein, Percutaneous Approach (ICD-10-PCS; 2016-11-10)
PROC: 0D568ZZ Destruction of Stomach, Via Natural or Artificial Opening Endoscopic (ICD-10-PCS; principal; 2016-11-11)
PROC: 0W3P8ZZ Control Bleeding in Gastrointestinal Tract, Via Natural or Artificial Opening Endoscopic (ICD-10-PCS; 2016-11-11)
PROC: 02HV33Z Insertion of Infusion Device into Superior Vena Cava, Percutaneous Approach (ICD-10-PCS; 2016-11-13)
DX: K31.811 Angiodysplasia of stomach and duodenum with bleeding (principal); D68.0 Von Willebrand disease; D62 Acute posthemorrhagic anemia; R04.0 Epistaxis; Z85.72 Personal history of non-Hodgkin lymphomas; Z85.528 Personal history of other malignant neoplasm of kidney; F17.210 Nicotine dependence, cigarettes, uncomplicated; I10 Essential (primary) hypertension; R55 Syncope and collapse; E03.9 Hypothyroidism, unspecified; Z85.51 Personal history of malignant neoplasm of bladder; Z85.46 Personal history of malignant neoplasm of prostate; K44.9 Diaphragmatic hernia without obstruction or gangrene
CPT/HCPCS: C1751; C9113; J7030; J7187; P9037; P9040